=== PATIENT | female | born 1960 | race African-American/Black ===

== ENCOUNTER 2025-01-03 01:58 | Emergency (ER) | payer OTHER ==
[~2025-01-03] VITALS: Ht 165.1 cm; Wt 70.0 kg
[2025-01-03 02:10] VITALS: O2SAT 97
[2025-01-03 02:14] VITALS: BP 171/76; PULSE 77; RESP 16; TEMP 36.6; O2SAT 98
[2025-01-03 02:50] LABS: CARBON DIOXIDE 28 mEq/L (21-32); CHLORIDE 103 mEq/L (98-107); POTASSIUM 3.6 mEq/L (3.5-5.1); SODIUM 139 mEq/L (136-145)
[2025-01-03 02:51] LABS: CALCIUM 9.6 mg/dL (8.7-10.4)
[2025-01-03 02:55] LABS: CREATININE 0.9 mg/dL (0.6-1.0)
[2025-01-03 02:56] LABS: ETHANOL BLOOD < 10 mg/dL (<10); GLUCOSE 103 mg/dL (70-105); TROPONIN I HIGH SENSITIVITY 11 ng/L (3.0-34); UREA NITROGEN BLOOD 6 mg/dL (9-23)
[2025-01-03] MEDS: VISCOUS LIDOCAINE 2% 15 ML UDC MM STA (03:00)
[2025-01-03] MEDS: FAMOTIDINE 20MG TABLET PO ONE (03:00)
[2025-01-03 03:24] LABS: BASOPHILS % 0.6 % (0.0-2.0); EOSINOPHILS % 0.6 % (0.0-5.0); HEMATOCRIT. 38.2 % (36.0-48.0); HEMOGLOBIN. 13.3 g/dL (12.0-16.0); LYMPHOCYTES % 35.2 % (20.0-50.0); MEAN CORPUSCULAR HEMOGLOBIN 33.2 pg (28.0-32.0); MEAN CORPUSCULAR HGB CONC 34.8 g/dL (31.0-37.0); MEAN CORPUSCULAR VOLUME 95.3 fL (81.0-99.0); MEAN PLATELET VOLUME 7.1 fl (7.4-10.4); MONOCYTES % 7.2 % (2.0-8.0); NEUTROPHILS % 56.4 % (40.0-76.0); PLATELET 411 x1000/uL (130-400); RED BLOOD CELL COUNT 4.01 mill/uL (4.2-5.4); RED CELL DISTRIBUTION WIDTH 12.6 % (11.6-14.6); WHITE BLOOD COUNT 7.3 x1000/uL (4.5-11.0)
[2025-01-03 03:47] LABS: PROTHROMBIN TIME 10.3 sec (9.6-11.0)
[2025-01-03 03:53] LABS: CLARITY URINE CLEAR (CLEAR); COLOR URINE YELLOW (YELLOW); GLUCOSE URINE NEGATIVE (NEGATIVE); KETONES URINE NEGATIVE (NEGATIVE); LEUKOCYTE ESTERASE URINE 3+ (NEGATIVE); NITRITE URINE NEGATIVE (NEGATIVE); OCCULT BLOOD URINE NEGATIVE (NEGATIVE); PH URINE 5.5 (4.5-8.0); PROTEIN URINE NEGATIVE (NEGATIVE); SPECIFIC GRAVITY URINE 1.011 (1.005-1.030); UROBILINOGEN URINE 0.2 E.U./dL (0.2-1.0)
[2025-01-03 04:00] LABS: *AMPHETAMINES SCREEN URINE NEGATIVE (NEGATIVE); *BARBITURATES SCREEN URINE NEGATIVE (NEGATIVE); *BENZODIAZEPINES SCREEN URINE NEGATIVE (NEGATIVE); *COCAINE SCREEN URINE NEGATIVE (NEGATIVE); METHADONE URINE SCREEN NEGATIVE (NEGATIVE); OPIATES URINE SCREEN NEGATIVE (NEGATIVE); PHENCYCLIDINE URINE SCREEN NEGATIVE (NEGATIVE)
[2025-01-03 04:01] LABS: CANNABINOID URINE SCREEN NEGATIVE (NEGATIVE); ECSTASY MDMA SCREEN URINE NEGATIVE (NEGATIVE)
[2025-01-03] MEDS ORDERED: FAMO-135 MT (04:37)
[2025-01-03] MEDS ORDERED: ACET-2708 MT (04:37)
[2025-01-03] MEDS ORDERED: MAG355OR21 MT (04:37)
[2025-01-03] MEDS ORDERED: CEPH500C2 MT (04:43)
[2025-01-03 08:29] LABS: SQUAMOUS EPITHELIAL CELL URINE FEW /lpf (RARE/1+)
[2025-01-03 08:30] LABS: BACTERIA URINE TRACE; WBC URINE 0-2 /hpf (0-2)
[2025-01-03 08:31] LABS: RBC URINE NONE SEEN /hpf (0-2)
== END 2025-01-03 04:54 | disposition home or self-care (01) ==
LOC: ER 01:58
DX: N39.0 Urinary tract infection, site not specified (principal); R10.13 Epigastric pain; I10 Essential (primary) hypertension; M17.11 Unilateral primary osteoarthritis, right knee; Z79.899 Other long term (current) drug therapy
CPT/HCPCS: 36415; 71045; 80048; 80305; 80320; 81003; 84484; 85025; 93005; 99285; G0480